=== PATIENT | male | born 1990 | race Caucasian/White ===

== ENCOUNTER 2025-05-09 13:10 | Outpatient (CLI) | payer OTHER | END 2025-05-09 13:11 | disposition home or self-care (01) | LOC: SCSRAD 13:10 | PROVIDERS: ATTEND Family Medicine | DX: M54.6 Pain in thoracic spine (principal); M47.817 Spondylosis without myelopathy or radiculopathy, lumbosacral region | CPT/HCPCS: 72110 ==